=== PATIENT | female | born 1960 | race Two or more races ===

== ENCOUNTER → 2023-02-08 | Emergency (ER) | payer OTHER, BC ==
[~2023-02-08] VITALS: Ht 160 cm; Wt 99.8 kg
[~2023-02-08] MED LIST: BAYER CHILDREN'81 MG PO; CRESTOR10 MG PO; XANAX1 MG PO
== END | disposition left against medical advice (07) ==
LOC: ER 11:14 → EDBD 11:34 → ER 11:34
DX: Z53.21 Procedure and treatment not carried out due to patient leaving prior to being seen by health care provider (principal)